=== PATIENT | female | born 1950 | race Caucasian/White ===

== ENCOUNTER 2017-11-03 09:50 | Emergency (ER) | payer MEDICARE, OTHER ==
[2017-11-03] MEDS ORDERED: NITR0.4T3 SL (10:04)
[2017-11-03] MEDS ORDERED: ATOR40TA24 PO (10:04)
[2017-11-03] MEDS ORDERED: LIOT5TAB18 PO (10:04)
[2017-11-03] MEDS ORDERED: LISI5TAB25 PO (10:04)
[2017-11-03] MEDS ORDERED: ASPI-1471 PO (10:04)
[2017-11-03] MEDS ORDERED: TICA90TA PO (10:04)
[2017-11-03] MEDS ORDERED: LEVO-3 PO (10:04)
[2017-11-03] MEDS ORDERED: CARV12.578 PO (10:04)
[2017-11-03] MEDS ORDERED: POTA-1 PO (10:04)
[2017-11-03 10:26] LABS: PLATELET COUNT, AUTOMATED 216 K/uL (150-450)
--- NOTE | 2017-11-03 10:36 | EKG ---
FACILITY: [facility] - [place] PATIENT NAME: FE MCCORMICK : [id number] MR: [id number] V: [id number] EXAM DATE: ORDERING PHYSICIAN: FROILAN LAZAR TECHNOLOGIST: Test Reason : Blood Pressure : / mmHG Vent. Rate : 059 BPM Atrial Rate : 059 BPM P-R Int : 198 ms QRS Dur : 086 ms QT Int : 424 ms P-R-T Axes : 049 -37 007 degrees QTc Int : 419 ms Sinus bradycardia Left axis deviation Abnormal ECG No previous ECGs available Confirmed by SAMSON ZIMMER ([id number]) on 11/03/2017 2:02:06 PM Referred By: Confirmed By:SAMSON ZIMMER
--- NOTE | 2017-11-03 10:41 | ER Report ---
History and Physical Time Seen By MD: 09:52 Hx. of Stated Complaint: DIZZY, CHEST HEAVINESS, SOB AND SYNCOPE X2 HPI/ROS CHIEF COMPLAINT: Syncope HISTORY OF PRESENT ILLNESS: Pt presents after syncopal event this am. Pt travelled from [facility] last sunday to elevation of > 10k in [place]; has had dyspnea and developed lightheadedness over past few days; this am she was packing cooler, had presyncope, then syncopal event; was helped to ground by . At this point, he drove her here. Upon entering ED pt has near- syncopal event with decreased responsiveness, this improves but she complains of continued lightheadedness with any exertion. Since approx 0945 pt has had mild upper chest heaviness/discomfort. REVIEW OF SYSTEMS: Constitutional: No fever, no chills. Eyes: No discharge. ENT: No sore throat. Respiratory: As above. Cardiac: As above. Gastrointestinal: No abdominal pain, no vomiting. Genitourinary: No hematuria. Musculoskeletal: No back pain. Skin: No rashes. Neurological: mild headache Remainder of the 14 system rev: Yes Allergies: Coded Allergies: NSAIDS (Non-Steroidal Anti-Inflamma (Verified Allergy, Unknown, 11/03/17) codeine (Verified Allergy, Unknown, 11/03/17) Home Meds Reported Medications Nitroglycerin (NITROGLYCERIN) 0.4 Mg Tab.subl, 0.4 MG SL Q5MIN Y for CHEST PAIN 11/03/17 Liothyronine Sodium (CYTOMEL) 5 Mcg Tablet, 5 MCG PO 11/03/17 Levothyroxine Sodium (LEVOTHYROXINE SODIUM) 100 Mcg Tablet, 100 MCG PO QDAY, TAB 11/03/17 Potassium Chloride (K-TAB) 10 Meq Tablet.er, 20 MEQ PO QDAY 11/03/17 Aspirin (ASPIR 81) 81 Mg Tablet.dr, 81 MG PO QDAY, TAB 11/03/17 Atorvastatin Calcium (LIPITOR) 40 Mg Tablet, 2 TAB PO QDAY, TAB 11/03/17 Lisinopril (LISINOPRIL) 5 Mg Tablet, 5 MG PO QDAY, TAB 11/03/17 Carvedilol (CARVEDILOL) 12.5 Mg Tablet, 12.5 MG PO BID, #10 TAB 11/03/17 Ticagrelor (BRILINTA) 90 Mg Tablet, 90 MG PO BID 11/03/17 Past Medical/Surgical History [place] in 2017, htn, chol Reviewed Nurses Notes: Yes Constitutional Vital Sign - Last 24 Hours 11/03/17 11/03/17 11/03/17 11/03/17 09:59 10:07 11:00 11:15 Temp 97.7 Pulse 63 Resp 18 B/P (MAP) 201/118 142/72 (95) 155/82 (106) Pulse Ox 98 O2 Delivery Room Air 11/03/17 11/03/17 11/03/17 11/03/17 11:30 11:45 11:58 12:00 Pulse 60 Resp 16 B/P (MAP) ???/??? (1665) 153/76 (101) 153/76 (101) 169/87 (114) Pulse Ox 94 O2 Delivery Room Air 11/03/17 11/03/17 11/03/17 11/03/17 12:15 12:30 12:45 13:15 B/P (MAP) 167/88 (114) 197/92 (127) 160/81 (107) 150/90 (110) 11/03/17 11/03/17 11/03/17 11/03/17 13:30 13:48 14:00 14:05 Pulse 61 67 62 Resp 14 19 16 B/P (MAP) 154/83 (106) 151/74 (99) 105/67 (80) 105/67 (80) Pulse Ox 95 96 95 O2 Delivery Room Air Physical Exam General Appearance: The patient is alert, has no immediate need for airway protection and no signs of toxicity. She appears uncomfortable and has continued c/o of presyncope Eyes: Pupils equal and round no pallor or injection. No nystagmus ENT, Mouth: Mucous membranes are moist. Respiratory: There are no retractions, lungs are clear to auscultation. Cardiovascular: Regular rate and rhythm. no m/r/g. no carotid bruit Gastrointestinal: Abdomen is soft and non tender, no masses, bowel sounds normal. Neurological: alert, oriented x 4, cn ii-xii intact; 5/5 ms ue = le, nl sensation throughout, nl reflexes, nl fnf, no ataxia Skin: Warm and dry, no rashes. Musculoskeletal: Neck is supple non tender. Extremities are nontender, nonswollen and have full range of motion. DIFFERENTIAL DIAGNOSIS: After history and physical exam differential diagnosis was considered for [ ]syncope including but not limited to vasovagal syncope, arrhythmia, dehydration, and blood loss, cva, ich, altitude illness; chest pain including but not limited to myocardial ischemia, pericarditis pulmonary embolus , chest wall pain, pleural inflammation and pulmonary infectious causes. Medical Decision Making Data Points Result Diagram: 11/03/17 1017 11/03/17 1017 Laboratory Hematology Test 11/03/17 10:17 11/03/17 10:21 11/03/17 11:13 11/03/17 13:45 Red Blood Count 4.21 M/uL (4.17-5.56) Mean Corpuscular Volume 91.9 fL (80.0-96.0) Mean Corpuscular Hemoglobin 31.9 pg (26.0-33.0) Mean Corpuscular Hemoglobin Concent 34.7 g/dL (32.0-36.0) Red Cell Distribution Width 13.7 % (11.5-14.5) Mean Platelet Volume 8.0 fL (7.2-11.1) Neutrophils (%) (Auto) 68.1 % (39.4-72.5) Lymphocytes (%) (Auto) 24.2 % (17.6-49.6) Monocytes (%) (Auto) 5.3 % (4.1-12.4) Eosinophils (%) (Auto) 1.5 % (0.4-6.7) Basophils (%) (Auto) 0.9 % (0.3-1.4) Nucleated RBC Relative Count (auto) 0.0 /100WBC Neutrophils # (Auto) 4.3 K/uL (2.0-7.4) Lymphocytes # (Auto) 1.5 K/uL (1.3-3.6) Monocytes # (Auto) 0.3 K/uL (0.3-1.0) Eosinophils # (Auto) 0.1 K/uL (0.0-0.5) Basophils # (Auto) 0.1 K/uL (0.0-0.1) Nucleated RBC Absolute Count (auto) 0.00 K/uL D-Dimer Quantitative (PE/DVT) 0.34 ug/ml (0-0.50) Sodium Level 140 mmol/L (137-145) Potassium Level 4.0 mmol/L (3.5-5.0) Chloride Level 107 mmol/L (98-107) Carbon Dioxide Level 24 mmol/L (22-31) Blood Urea Nitrogen 12 mg/dl (7-18) Creatinine 0.80 mg/dl (0.52-1.04) Glomerular Filtration Rate Calc > 60.0 Random Glucose 106 mg/dl (75-110) Calcium Level 9.1 mg/dl (8.4-10.2) Total Bilirubin 0.6 mg/dl (0.2-1.3) Aspartate Amino Transf (AST/SGOT) 30 U/L (0-35) Alanine Aminotransferase (ALT/SGPT) 37 U/L (0-56) Alkaline Phosphatase 87 U/L (0-126) B-Type Natriuretic Peptide 179 pg/ml (0-100) Total Protein 6.4 g/dl (6.3-8.2) Albumin 4.0 g/dl (3.5-5.0) Whole Blood Glucose 102 mg/DL (75-110) Urine Color Yellow Urine Clarity Clear Urine pH 7.0 pH (4.8-9.5) Urine Specific [place] 1.013 Urine Protein Negative mg/dL (NEGATIVE) Urine Glucose (UA) Negative mg/dL (NEGATIVE) Urine Ketones Negative mg/dL (NEGATIVE) Urine Blood Negative (NEGATIVE) Urine Nitrite Negative (NEGATIVE) Urine Bilirubin Negative (NEGATIVE) Urine Urobilinogen Negative mg/dL (0.2-1.9) Urine Leukocyte Esterase Negative (NEGATIVE) Urine RBC <1 /HPF (0-2/HPF) Urine WBC <1 /HPF (0-5/HPF) Urine Squamous Epithelial Cells None /LPF (</=FEW) Urine Bacteria Negative /HPF (NONE-FEW) Urine Mucus None /HPF (NONE-FEW) Troponin I < 0.012 ng/ml Chemistry Test 11/03/17 10:17 11/03/17 10:21 11/03/17 11:13 11/03/17 13:45 White Blood Count 6.3 k/uL (4.5-11.0) Red Blood Count 4.21 M/uL (4.17-5.56) Hemoglobin 13.4 g/dL (12.0-16.0) Hematocrit 38.7 % (34.0-47.0) Mean Corpuscular Volume 91.9 fL (80.0-96.0) Mean Corpuscular Hemoglobin 31.9 pg (26.0-33.0) Mean Corpuscular Hemoglobin Concent 34.7 g/dL (32.0-36.0) Red Cell Distribution Width 13.7 % (11.5-14.5) Platelet Count 216 K/uL (150-450) Mean Platelet Volume 8.0 fL (7.2-11.1) Neutrophils (%) (Auto) 68.1 % (39.4-72.5) Lymphocytes (%) (Auto) 24.2 % (17.6-49.6) Monocytes (%) (Auto) 5.3 % (4.1-12.4) Eosinophils (%) (Auto) 1.5 % (0.4-6.7) Basophils (%) (Auto) 0.9 % (0.3-1.4) Nucleated RBC Relative Count (auto) 0.0 /100WBC Neutrophils # (Auto) 4.3 K/uL (2.0-7.4) Lymphocytes # (Auto) 1.5 K/uL (1.3-3.6) Monocytes # (Auto) 0.3 K/uL (0.3-1.0) Eosinophils # (Auto) 0.1 K/uL (0.0-0.5) Basophils # (Auto) 0.1 K/uL (0.0-0.1) Nucleated RBC Absolute Count (auto) 0.00 K/uL D-Dimer Quantitative (PE/DVT) 0.34 ug/ml (0-0.50) Glomerular Filtration Rate Calc > 60.0 Calcium Level 9.1 mg/dl (8.4-10.2) Total Bilirubin 0.6 mg/dl (0.2-1.3) Aspartate Amino Transf (AST/SGOT) 30 U/L (0-35) Alanine Aminotransferase (ALT/SGPT) 37 U/L (0-56) Alkaline Phosphatase 87 U/L (0-126) B-Type Natriuretic Peptide 179 pg/ml (0-100) Total Protein 6.4 g/dl (6.3-8.2) Albumin 4.0 g/dl (3.5-5.0) Whole Blood Glucose 102 mg/DL (75-110) Urine Color Yellow Urine Clarity Clear Urine pH 7.0 pH (4.8-9.5) Urine Specific [place] 1.013 Urine Protein Negative mg/dL (NEGATIVE) Urine Glucose (UA) Negative mg/dL (NEGATIVE) Urine Ketones Negative mg/dL (NEGATIVE) Urine Blood Negative (NEGATIVE) Urine Nitrite Negative (NEGATIVE) Urine Bilirubin Negative (NEGATIVE) Urine Urobilinogen Negative mg/dL (0.2-1.9) Urine Leukocyte Esterase Negative (NEGATIVE) Urine RBC <1 /HPF (0-2/HPF) Urine WBC <1 /HPF (0-5/HPF) Urine Squamous Epithelial Cells None /LPF (</=FEW) Urine Bacteria Negative /HPF (NONE-FEW) Urine Mucus None /HPF (NONE-FEW) Troponin I < 0.012 ng/ml Coagulation Test 11/03/17 10:17 D-Dimer Quantitative (PE/DVT) 0.34 ug/ml Urinalysis Test 11/03/17 11:13 Urine Color Yellow Urine Clarity Clear Urine pH 7.0 pH (4.8-9.5) Urine Specific [place] 1.013 Urine Protein Negative mg/dL (NEGATIVE) Urine Glucose (UA) Negative mg/dL (NEGATIVE) Urine Ketones Negative mg/dL (NEGATIVE) Urine Blood Negative (NEGATIVE) Urine Nitrite Negative (NEGATIVE) Urine Bilirubin Negative (NEGATIVE) Urine Urobilinogen Negative mg/dL (0.2-1.9) Urine Leukocyte Esterase Negative (NEGATIVE) Urine RBC <1 /HPF (0-2/HPF) Urine WBC <1 /HPF (0-5/HPF) Urine Squamous Epithelial Cells None /LPF (</=FEW) Urine Bacteria Negative /HPF (NONE-FEW) Urine Mucus None /HPF (NONE-FEW) EKG/Imaging EKG Interpretation 12 lead EKG: Rhythm: normal sinus rhythm [place]: LAD QRS: normal ST segments: normal; no st elevation or depression Monitor Interpretation: Normal Sinus Rhythm Imaging X-ray: chest was obtained. I viewed the images myself on the PACS system. My interpretation of the images is: NACPD. The radiologist interpretation had no clinically significant variation from this interpretation. ED Course/Re-evaluation ED Course Pt presents with syncopal episode this am while at altitude > 10,000 ft, though without cp, sob, mandel. She had rpt near syncope upon arrival to ED but symptoms improve throughout ed stay and on re-eval pt is asymptomatic with ambulation without difficulty. Considered multiple emergent etiologies but after ed eval, low posttest prob for emergent neuro/cardio etiology. Discussed further montioring/admission v d/c; pt comfortable with d/c and she and understand strict rtn precautions. Decision to Disposition Date: Nov 03, 2017 Decision to Disposition Time: 14:40 Depart Departure Latest Vital Signs Vital Signs Date Time Temp Pulse Resp B/P (MAP) Pulse Ox O2 Delivery O2 Flow Rate FiO2 11/03/17 14:05 62 16 105/67 (80) 95 Room Air 11/03/17 10:07 97.7 Impression: Primary Impression: Syncope Condition: Improved Disposition: HOME OR SELF-CARE Patient Instructions: Syncope (ED) Additional Instructions: It has been a pleasure caring for you; as we discussed, return home as opposed to spending more time at altitude. If your symptoms return, or if you have chest pain or return of shortness of breath, seek care at the closest emergency department immediately. Please contact your net developer architect sunday for stress testing to be scheduled as soon as possible. We discussed multiple potential causes of your symptoms and while I do not see a clear cause right now, it is possible that you are developing an illness; for this reason, as above, it is important that you seek care immediatly. However, do keep in mind that most patients with syncope, or passing out, do not have a clearly discovered cause and do very well. FROILAN LAZAR MD Nov 03, 2017 10:41
--- NOTE | 2017-11-03 11:00 | RADIOLOGY IMAGING REPORT ---
FACILITY: [facility] PATIENT NAME: Kat Retana : 1950 MR: [id number] V: [id number] EXAM DATE: ORDERING PHYSICIAN: FROILAN LAZAR TECHNOLOGIST: Location: [facility] [place] Patient: Kat Retana : 1950 Visit/Account:[id number] Date of Sevice: 11/03/2017 CHEST PA AND LAT HISTORY: shortness of breath COMPARISON: None FINDINGS: Cardiomediastinal contours: Normal Lungs and pleura: Normal Bones/soft tissues: Normal Other findings: Coronary artery stent noted. IMPRESSION: 1. No acute cardiopulmonary disease. Report Dictated By: Federico Boss MD at 11/03/2017 10:52 AM Report E-Signed By: Federico Boss MD at 11/03/2017 10:56 AM WSN:[id number]
[2017-11-03] MEDS ORDERED: NS(*) 0.9% 1000 ML BAG 1,000 ML IV ONE (11:05)
--- NOTE | 2017-11-03 11:54 | RADIOLOGY IMAGING REPORT ---
FACILITY: [facility] PATIENT NAME: Kat Retana : 1950 MR: [id number] V: [id number] EXAM DATE: ORDERING PHYSICIAN: FROILAN LAZAR TECHNOLOGIST: Location: [facility] Patient: Kat Retana : 1950 Visit/Account:[id number] Date of Sevice: 11/03/2017 EXAMINATION: CT HEAD WITHOUT CONTRAST COMPARISON: None available HISTORY: Headache and hypertension. PROCEDURE: Noncontrast CT from the vertex through the skull base. One of the following dose optimizat ion techniques was utilized in the performance of this exam: Automated exposure control; adjustment o f the mA and/or kV according to the patient's size; or use of an iterative reconstruction technique. Specific details can be referenced in the facility's radiology CT exam operational policy. FINDINGS: Brain volume: Age-appropriate. Hemorrhage/extra-axial fluid: None. Mass effect/midline shift/edema: None. Ischemia: Acevedo-white differentiation is preserved. Ventricles and basal cisterns: Within normal limits. Posterior fossa: Negative. Vessels: Negative. Calvarium, skull base, and scalp: Negative. Visualized sinuses and orbits: Within normal limits. IMPRESSION: Negative age-appropriate noncontrast head CT. Report Dictated By: Cristopher Tadeo MD at 11/03/2017 11:45 AM Report E-Signed By: Cristopher Tadeo MD at 11/03/2017 11:50 AM WSN:[id number]
[2017-11-03] MEDS ORDERED: LORazepam 2 MG/ML VIAL IVP ONE (12:35)
[2017-11-03 14:05] VITALS: BP 105/67
== END 2017-11-03 14:46 | disposition home or self-care (01) ==
LOC: ER 09:55
DX: R55 Syncope and collapse (principal); R06.02 Shortness of breath
CPT/HCPCS: 36415; 36416; 70450; 71046; 81001; 82948; 83880; 84484; 85025; 85379; 93005; 96361; 96374; 99284; J2060; J7030; 82040; 82247; 82310; 82374; 82435; 82565; 82947; 84075; 84132; 84155; 84295; 84450; 84460; 84520